=== PATIENT | male | born 1950 | race African-American/Black ===

== ENCOUNTER 2017-10-24 09:14 | Emergency (ER) | payer MEDICARE, SELFPAY | END 2017-10-24 11:07 | disposition home or self-care (01) | LOC: NAV ERS 09:14 | DX: J06.9 Acute upper respiratory infection, unspecified (principal) | CPT/HCPCS: 99283 ==

== ENCOUNTER 2018-09-19 08:42 | Emergency (ER) | payer MEDICARE, SELFPAY ==
[2018-09-19] MEDS ORDERED: Sodium Chloride 0.9% 1,000 ML BAG ONE (09:00)
[2018-09-19] MEDS ORDERED: Diltiazem 125 MG/25 ML ONE (09:32)
[2018-09-19 09:54] LABS: #Basophils 0.1 thou/uL (0.0-0.2); #Lymphocytes 1.2 thou/uL (1.20-3.40); #Monocytes 0.5 thou/uL (0.11-0.59); #Neutrophils 3.6 thou/uL (1.40-6.50); %Basophils 1.5 % (0.0-1.0); %Eosinophils 0.2 % (0.0-10.0); %Lymphocytes 22.6 % (21.0-51.0); %Monocytes 8.4 % (0.0-10.0); %Neutrophils 67.3 % (42.0-75.0); Hemoglobin 15.5 g/dL (14.0-18.0); Mean Corpuscular HGB CONC 32.2 g/dL (32.0-36.0); Mean Corpuscular Hemoglobin 30.4 pg (27.0-31.0); Mean Corpuscular Volume 94.3 fL (78.0-98.0); Mean Platelet Volume 8.3 fL (7.4-10.4); PTT 27.2 SEC (22.9-36.1); Platelet Count 225 thou/uL (130-400); Prothrombin Time 13.6 SEC (12.0-14.7); RBC Distribution Width 12.2 % (11.5-14.5); Red Blood Cell (RBC) Count 5.11 mill/uL (4.70-6.10); White Blood Cell (WBC) Count 5.4 thou/uL (4.8-10.8)
[2018-09-19 10:01] LABS: Acetaminophen Less than 6.0 mcg/mL (10.0-30.0); Alcohol Less than 10 mg/dL (Less than 10); Salicylate Less than 8.0 mg/dL (15.0-30.0)
[2018-09-19 10:05] LABS: ALT (SGPT) 32 U/L (8-55); AST (SGOT) 44 U/L (5-34); Albumin 4.2 g/dL (3.4-4.8); Alkaline Phosphatase 81 U/L (40-150); Anion Gap 18 mmol/L (10-20); BUN (Urea Nitrogen) 14 mg/dL (8.4-25.7); Bilirubin, Total 0.5 mg/dL (0.2-1.2); Calc. Creatinine Clearance 0 mL/min (70-130); Calcium 9.5 mg/dL (7.8-10.44); Carbon Dioxide 20 mmol/L (23-31); Chloride 100 mmol/L (98-107); Estimated GFR-MDRD 80; Globulin 3.2 g/dL (2.4-3.5); Glucose 99 mg/dL (80-115); Potassium 4.2 mmol/L (3.5-5.1); Protein, Total 7.4 g/dL (5.8-8.1); Sodium 134 mmol/L (136-145)
[2018-09-19] MEDS ORDERED: Lorazepam 1 MG TAB ONE (10:09)
[2018-09-19 10:21] LABS: CKMB 5.8 ng/mL (0-6.6)
--- NOTE | 2018-09-19 10:51 | RAD ---
CHEST 1 VIEW: Date: 09/19/18 HISTORY: Chest pain. Dyspnea. COMPARISON: None. FINDINGS: Lungs are clear. No pneumothorax or effusion. Heart size mildly enlarged. No acute osseous abnormality. IMPRESSION: Mild cardiomegaly. POS: [facility]
[2018-09-19 11:59] LABS: Amphetamine Not Detected (NotDetected); Barbiturates Screen Not Detected (NotDetected); Benzodiazepine Screen Not Detected (NotDetected); Cocaine Metabolite Screen Not Detected (NotDetected); Methadone Not Detected (NotDetected); Methamphetamine Not Detected (NotDetected); Opiate Screen Not Detected (NotDetected); Oxycodone Screen Not Detected (NotDetected); Phencyclidine (PCP) Not Detected (NotDetected); THC/Cannabinoid Screen Not Detected (NotDetected); Tricyclic Screen Not Detected (NotDetected)
[2018-09-19 12:00] LABS: Medtox Control Line Valid? VALID (VALID)
== END 2018-09-19 11:20 | disposition short-term general hospital (02) ==
LOC: NAV ERS 08:42
DX: I48.91 Unspecified atrial fibrillation (principal); F10.10 Alcohol abuse, uncomplicated; I24.8 Other forms of acute ischemic heart disease; R79.89 Other specified abnormal findings of blood chemistry
CPT/HCPCS: 36415; 71045; 80053; 80306; 80307; 82553; 84443; 84484; 85025; 85610; 85730; 93005; 94760; 96374; J7050; J7070

== ENCOUNTER 2019-05-13 16:00 | Emergency (ER) | payer SELFPAY, MEDICARE | END 2019-05-13 17:00 | disposition home or self-care (01) | LOC: NAV ERS 16:00 | DX: S16.1XXA Strain of muscle, fascia and tendon at neck level, initial encounter (principal); I49.9 Cardiac arrhythmia, unspecified; I48.91 Unspecified atrial fibrillation; E78.5 Hyperlipidemia, unspecified; E78.00 Pure hypercholesterolemia, unspecified; I10 Essential (primary) hypertension; Z79.82 Long term (current) use of aspirin; Z79.899 Other long term (current) drug therapy; X50.9XXA Other and unspecified overexertion or strenuous movements or postures, initial encounter | CPT/HCPCS: 99283 ==

== ENCOUNTER 2019-05-28 14:40 | Emergency (ER) | payer MEDICARE ==
[2019-05-28 15:05] LABS: #Basophils 0.1 thou/uL (0.0-0.2); #Monocytes 0.5 thou/uL (0.11-0.59); #Neutrophils 4.1 thou/uL (1.40-6.50); %Basophils 0.9 % (0.0-1.0); %Eosinophils 0.3 % (0.0-10.0); %Lymphocytes 29.9 % (21.0-51.0); %Neutrophils 61.8 % (42.0-75.0); Hemoglobin 13.3 g/dL (14.0-18.0); Mean Corpuscular HGB CONC 31.8 g/dL (32.0-36.0); Mean Corpuscular Hemoglobin 28.2 pg (27.0-31.0); Mean Corpuscular Volume 88.9 fL (78.0-98.0); Mean Platelet Volume 8.2 fL (7.4-10.4); Platelet Count 214 thou/uL (130-400); Red Blood Cell (RBC) Count 4.72 mill/uL (4.70-6.10); White Blood Cell (WBC) Count 6.6 thou/uL (4.8-10.8)
[2019-05-28] MEDS ORDERED: Aspirin Chewable 81 MG TAB ONE (15:12)
--- NOTE | 2019-05-28 15:15 | RAD ---
PORTABLE CHEST ONE VIEW: 05/28/19 at 2:45 p.m. HISTORY: Dyspnea. FINDINGS: Comparison made with exam of 09/19/18. The heart size is normal. The aorta is tortuous. The lungs are expanded without focal areas of consol idation, pneumothoraces, sindy pulmonary edema or pleural effusions. IMPRESSION: No acute process. POS: OFF
[2019-05-28] MEDS ORDERED: Diltiazem 125 MG/25 ML ONE ×2 (15:20→15:49)
[2019-05-28 15:24] LABS: Lactic Acid 1.4 mmol/L (0.5-2.2)
[2019-05-28 15:25] LABS: INR-International Normal Ratio 1.1; PTT 28.9 SEC (22.9-36.1); Prothrombin Time 13.9 SEC (12.0-14.7)
[2019-05-28 15:29] LABS: ALT (SGPT) 22 U/L (8-55); AST (SGOT) 31 U/L (5-34); Albumin 4.3 g/dL (3.4-4.8); Alkaline Phosphatase 98 U/L (40-150); Anion Gap 18 mmol/L (10-20); BUN (Urea Nitrogen) 11 mg/dL (8.4-25.7); Bilirubin, Total 0.9 mg/dL (0.2-1.2); CK (CPK) 370 U/L (30-200); Calc. Creatinine Clearance 0 mL/min (70-130); Carbon Dioxide 28 mmol/L (23-31); Chloride 99 mmol/L (98-107); Estimated GFR-MDRD 51; Globulin 3.4 g/dL (2.4-3.5); Glucose 118 mg/dL (80-115); Magnesium 2.1 mg/dL (1.6-2.6); Protein, Total 7.7 g/dL (5.8-8.1); Sodium 142 mmol/L (136-145)
[2019-05-28 15:36] LABS: Potassium 2.9 mmol/L (3.5-5.1)
[2019-05-28] MEDS ORDERED: Potassium Chloride 20 MEQ TAB ONE (15:41)
[2019-05-28] MEDS ORDERED: Potassium Chloride 20 MEQ/100 ML PREMIX BAG ONE (15:41)
[2019-05-28 15:42] LABS: Bilirubin Negative (Negative); Blood, Urine Trace (Negative); Clarity Clear (Clear); Glucose, Urine (Dipstick) Negative (Negative); Leukocyte Negative (Negative); Nitrite Negative (Negative); Protein, Urine (Dipstick) Trace mg/dL (Neg-Trace); Urobilinogen 0.2 mg/dL (Less than 2)
[2019-05-28 15:46] LABS: CKMB 5.7 ng/mL (0-6.6)
[2019-05-28 15:53] LABS: Amphetamine Not Detected (NotDetected); Barbiturates Screen Not Detected (NotDetected); Benzodiazepine Screen Not Detected (NotDetected); Cocaine Metabolite Screen Not Detected (NotDetected); Medtox Control Line Valid? VALID (VALID); Methadone Not Detected (NotDetected); Methamphetamine Not Detected (NotDetected); Opiate Screen Not Detected (NotDetected); Oxycodone Screen Not Detected (NotDetected); Phencyclidine (PCP) Not Detected (NotDetected); THC/Cannabinoid Screen Not Detected (NotDetected); Tricyclic Screen Not Detected (NotDetected)
[2019-05-28 16:00] LABS: Bacteria/HPF None Seen HPF (None Seen); RBC/HPF 0-3 HPF (0-3); Squamous Epithelial None Seen HPF (0-3); WBC/HPF None Seen HPF (0-3)
[2019-05-28] MEDS ORDERED: Enoxaparin Sodium 100 MG/ML SYRINGE ONE (16:08)
== END 2019-05-28 16:45 | disposition short-term general hospital (02) ==
LOC: NAV ERS 14:40
DX: I48.91 Unspecified atrial fibrillation (principal); N17.9 Acute kidney failure, unspecified; E86.0 Dehydration; E87.6 Hypokalemia; R77.8 Other specified abnormalities of plasma proteins; E78.5 Hyperlipidemia, unspecified; I10 Essential (primary) hypertension; Z79.82 Long term (current) use of aspirin; Z79.899 Other long term (current) drug therapy
CPT/HCPCS: 71045; 80053; 80306; 81003; 81015; 82550; 82553; 83605; 83735; 84443; 84484; 85025; 85610; 85730; 93005; 94760; 96361; 96365; 96372; 96375; J1650; J3480

== ENCOUNTER 2021-01-23 14:01 | Emergency (ER) | payer MEDICARE | END 2021-01-23 14:45 | disposition home or self-care (01) | LOC: NAV ERS 14:01 | DX: M70.21 Olecranon bursitis, right elbow (principal); E78.5 Hyperlipidemia, unspecified; I10 Essential (primary) hypertension; Z79.82 Long term (current) use of aspirin ==

== ENCOUNTER 2021-12-11 18:05 | Emergency (ER) | payer MEDICARE | END 2021-12-11 19:40 | disposition home or self-care (01) | LOC: NAV ERS 18:05 | DX: S83.91XA Sprain of unspecified site of right knee, initial encounter (principal); I10 Essential (primary) hypertension; I48.91 Unspecified atrial fibrillation; E78.5 Hyperlipidemia, unspecified; E78.00 Pure hypercholesterolemia, unspecified; W17.89XA Other fall from one level to another, initial encounter ==

== ENCOUNTER 2021-12-16 11:40 | Emergency (ER) | payer MEDICARE ==
[2021-12-16] MEDS ORDERED: Aspirin Chewable 81 MG TAB ONE (12:04)
[2021-12-16] MEDS ORDERED: Enoxaparin Sodium 100 MG/ML SYRINGE ONE (12:04)
[2021-12-16 12:18] LABS: PTT 28.3 sec (22.9-36.1)
[2021-12-16 12:28] LABS: ALT (SGPT) 23 U/L (8-55); AST (SGOT) 32 U/L (5-34); Albumin 4.4 g/dL (3.4-4.8); Alkaline Phosphatase 94 U/L (40-110); Anion Gap 16 mmol/L (10-20); BUN (Urea Nitrogen) 17 mg/dL (8.4-25.7); Bilirubin, Total 0.5 mg/dL (0.2-1.2); Calc. Creatinine Clearance 0 mL/min (70-130); Calcium 9.7 mg/dL (7.8-10.44); Carbon Dioxide 26 mmol/L (23-31); Chloride 101 mmol/L (98-107); Globulin 3.7 g/dL (2.4-3.5); Glucose 104 mg/dL (80-115); Potassium 4.2 mmol/L (3.5-5.1); Protein, Total 8.1 g/dL (5.8-8.1); Sodium 139 mmol/L (136-145)
[2021-12-16 12:48] LABS: #Basophils 0.1 thou/uL (0.0-0.2); #Lymphocytes 1.9 thou/uL (1.20-3.40); #Monocytes 0.5 thou/uL (0.11-0.59); #Neutrophils 4.2 thou/uL (1.40-6.50); %Basophils 1.8 % (0.0-1.0); %Eosinophils 0.3 % (0.0-10.0); %Lymphocytes 27.7 % (21.0-51.0); %Monocytes 7.3 % (0.0-10.0); %Neutrophils 62.9 % (42.0-75.0); Hemoglobin 15.5 g/dL (14.0-18.0); Mean Corpuscular HGB CONC 31.6 g/dL (32.0-36.0); Mean Platelet Volume 7.6 fL (7.4-10.4); Platelet Count 243 thou/uL (130-400); RBC Distribution Width 12.8 % (11.5-14.5); Red Blood Cell (RBC) Count 5.01 mill/uL (4.70-6.10); White Blood Cell (WBC) Count 6.7 thou/uL (4.8-10.8)
[2021-12-16 12:58] LABS: CKMB 5.1 ng/mL (0-6.6)
[2021-12-16 13:50] LABS: SARS-CoV-2 NAA Rapid Test Not Detected (NotDetected)
[2021-12-16] MEDS ORDERED: Metoprolol Tartrate 25 MG TAB ONE (13:56)
[2021-12-16 14:06] LABS: Magnesium 1.4 mg/dL (1.6-2.6)
== END 2021-12-16 14:43 | disposition short-term general hospital (02) ==
LOC: NAV ERS 11:40
DX: I48.91 Unspecified atrial fibrillation (principal); I12.9 Hypertensive chronic kidney disease with stage 1 through stage 4 chronic kidney disease, or unspecified chronic kidney disease; N18.30 Chronic kidney disease, stage 3 unspecified; R79.89 Other specified abnormal findings of blood chemistry; E78.5 Hyperlipidemia, unspecified; Z20.822 Contact with and (suspected) exposure to COVID-19
CPT/HCPCS: 71045; 80053; 82553; 83735; 83880; 84443; 84484; 85025; 85610; 85730; 93005; 94760; 96372; 96374; J1650; U0002

== ENCOUNTER 2023-10-31 15:01 | Emergency (ER) | payer SELFPAY ==
[2023-10-31] MEDS ORDERED: Sodium Chloride 0.9% 100 ML ONE (15:49)
[2023-10-31] MEDS ORDERED: dilTIAZem 25 MG/5 ML VIAL ONE (15:49)
[2023-10-31] MEDS ORDERED: dilTIAZem 125 MG/25 ML SDV ONE (15:49)
[2023-10-31 16:05] LABS: ALT (SGPT) 17 U/L (8-55); AST (SGOT) 22 U/L (5-34); Alkaline Phosphatase 97 U/L (40-110); Anion Gap 20 mmol/L (10-20); BUN (Urea Nitrogen) 13 mg/dL (8.4-25.7); Bilirubin, Total 0.6 mg/dL (0.2-1.2); Calc. Creatinine Clearance 0 mL/min (70-130); Calcium 8.7 mg/dL (7.8-10.44); Carbon Dioxide 17 mmol/L (23-31); Chloride 106 mmol/L (98-107); Estimated GFR 62; Globulin 3.4 g/dL (2.4-3.5); Glucose 118 mg/dL (83-110); Potassium 3.9 mmol/L (3.5-5.1); Protein, Total 7.4 g/dL (5.8-8.1); Sodium 139 mmol/L (136-145); Troponin I 0.032 ng/mL (< 0.028)
[2023-10-31 16:09] LABS: #Basophils 0.1 thou/uL (0.0-0.2); #Lymphocytes 2.6 thou/uL (1.20-3.40); #Monocytes 0.4 thou/uL (0.11-0.59); #Neutrophils 4.1 thou/uL (1.40-6.50); %Basophils 1.1 % (0.0-1.0); %Eosinophils 0.6 % (0.0-10.0); %Lymphocytes 35.7 % (21.0-51.0); %Monocytes 5.2 % (0.0-10.0); %Neutrophils 57.4 % (42.0-75.0); Hematocrit 45.2 % (42.0-52.0); Hemoglobin 14.8 g/dL (14.0-18.0); Mean Corpuscular HGB CONC 32.8 g/dL (32.0-36.0); Mean Corpuscular Hemoglobin 31.1 pg (27.0-31.0); Mean Corpuscular Volume 94.9 fl (78.0-98.0); Mean Platelet Volume 8.1 fL (7.4-10.4); Platelet Count 206 10x3/uL (130-400); RBC Distribution Width 12.9 % (11.5-14.5); Red Blood Cell (RBC) Count 4.77 mill/uL (4.70-6.10); White Blood Cell (WBC) Count 7.1 10x3/uL (4.8-10.8)
[2023-10-31] MEDS ORDERED: Aspirin Chewable 81 MG TAB ONE (16:30)
== END 2023-10-31 17:00 | disposition short-term general hospital (02) ==
LOC: NAV ERS 15:01
DX: I48.92 Unspecified atrial flutter (principal); R79.89 Other specified abnormal findings of blood chemistry; I10 Essential (primary) hypertension; Z87.891 Personal history of nicotine dependence
CPT/HCPCS: 36415; 71045; 80053; 84484; 85025; 93005; 96365; 96374

== ENCOUNTER 2024-10-26 23:09 | Emergency (ER) | payer MEDICARE ==
[2024-10-26] MEDS ORDERED: dilTIAZem 125 MG/25 ML SDV ONE (23:37)
[2024-10-26] MEDS ORDERED: Sodium Chloride 0.9% 100 ML ONE (23:38)
[2024-10-26 23:39] LABS: #Basophils 0.1 thou/uL (0.0-0.2); #Monocytes 0.5 thou/uL (0.11-0.59); #Neutrophils 1.9 thou/uL (1.40-6.50); %Basophils 1.8 % (0.0-1.0); %Eosinophils 0.8 % (0.0-10.0); %Lymphocytes 53.8 % (21.0-51.0); %Monocytes 9.4 % (0.0-10.0); %Neutrophils 34.1 % (42.0-75.0); Hematocrit 43.3 % (42.0-52.0); Hemoglobin 13.5 g/dL (14.0-18.0); Mean Corpuscular HGB CONC 31.2 g/dL (32.0-36.0); Mean Corpuscular Hemoglobin 29.9 pg (27.0-31.0); Mean Corpuscular Volume 95.8 fl (78.0-98.0); Mean Platelet Volume 9.1 fL (7.4-10.4); Platelet Count 144 10x3/uL (130-400); RBC Distribution Width 12.1 % (11.5-14.5); Red Blood Cell (RBC) Count 4.52 mill/uL (4.70-6.10); White Blood Cell (WBC) Count 5.6 10x3/uL (4.8-10.8)
[2024-10-26] MEDS ORDERED: dilTIAZem 25 MG/5 ML VIAL ONE (23:41)
[2024-10-26 23:55] LABS: ALT (SGPT) 19 U/L (Less than 45); AST (SGOT) 30 U/L (11-34); Albumin 4.1 g/dL (3.1-4.5); Alkaline Phosphatase 68 U/L (40-110); Anion Gap 14 mmol/L (10-20); BUN (Urea Nitrogen) 21 mg/dL (8.4-25.7); Bilirubin, Total 1.1 mg/dL (0.3-1.2); Calc. Creatinine Clearance 0 mL/min (70-130); Calcium 9.5 mg/dL (7.8-10.44); Carbon Dioxide 20 mmol/L (23-31); Chloride 108 mmol/L (98-107); Estimated GFR 38; Glucose 124 mg/dL (83-110); Potassium 3.8 mmol/L (3.5-5.1); Protein, Total 7.1 g/dL (5.8-8.1); Sodium 138 mmol/L (136-145)
[2024-10-26 23:57] LABS: Troponin I 0.092 ng/mL (< 0.028)
[2024-10-27] MEDS ORDERED: Aspirin Chewable 81 MG TAB ONE (00:06)
[2024-10-27 04:34] LABS: Troponin I 0.085 ng/mL (< 0.028)
[2024-10-27 06:01] LABS: Troponin I 0.083 ng/mL (< 0.028)
[2024-10-27] MEDS ORDERED: Metoprolol Tartrate 25 MG TAB ONE (08:19)
[2024-10-27 09:23] LABS: Anion Gap 13 mmol/L (10-20); BUN (Urea Nitrogen) 18 mg/dL (8.4-25.7); Calc. Creatinine Clearance 0 mL/min (70-130); Calcium 9.5 mg/dL (7.8-10.44); Carbon Dioxide 20 mmol/L (23-31); Chloride 110 mmol/L (98-107); Estimated GFR 51; Glucose 121 mg/dL (83-110); Sodium 139 mmol/L (136-145)
== END 2024-10-27 13:13 | disposition short-term general hospital (02) ==
LOC: NAV ERS 23:09
DX: I48.91 Unspecified atrial fibrillation (principal); R79.89 Other specified abnormal findings of blood chemistry; J81.1 Chronic pulmonary edema; I10 Essential (primary) hypertension; Z79.82 Long term (current) use of aspirin
CPT/HCPCS: 71045; 80048; 80053; 83735; 83880; 84484; 85025; 93005; 94760; 96374

== ENCOUNTER 2025-01-10 11:05 | Outpatient (CLI) | payer OTHER ==
[2025-01-10 11:33] LABS: INR-International Normal Ratio 1.7; Prothrombin Time 20.3 sec (12.0-14.7)
== END 2025-01-10 11:06 | disposition home or self-care (01) ==
LOC: NAV LAB 11:05
PROVIDERS: ATTEND Internal Medicine
DX: I50.22 Chronic systolic (congestive) heart failure (principal)
CPT/HCPCS: 36415; 85610

== ENCOUNTER 2025-05-03 17:14 | Emergency (ER) | payer MEDICARE, SELFPAY ==
[2025-05-03 17:58] LABS: Hematocrit 39.4 % (42.0-52.0); Hemoglobin 13.5 g/dL (14.0-18.0); Mean Corpuscular Hemoglobin 31.5 pg (27.0-31.0); Mean Corpuscular Volume 92.0 fl (78.0-98.0); Platelet Count 164 10x3/uL (130-400); Red Blood Cell (RBC) Count 4.28 mill/uL (4.70-6.10); White Blood Cell (WBC) Count 5.9 10x3/uL (4.8-10.8)
[2025-05-03 18:04] LABS: ALT (SGPT) 17 U/L (Less than 45); AST (SGOT) 25 U/L (11-34); Albumin 4.2 g/dL (3.1-4.5); Alkaline Phosphatase 49 U/L (40-110); Anion Gap 22 mmol/L (10-20); BUN (Urea Nitrogen) 117 mg/dL (8.4-25.7); Bilirubin, Total 0.7 mg/dL (0.3-1.2); Calc. Creatinine Clearance 0 mL/min (70-130); Calcium 9.6 mg/dL (7.8-10.44); Carbon Dioxide 21 mmol/L (23-31); Chloride 97 mmol/L (98-107); Globulin 3.8 g/dL (2.4-3.5); Glucose 97 mg/dL (83-110); Potassium 4.8 mmol/L (3.5-5.1); Sodium 135 mmol/L (136-145)
[2025-05-03 18:06] LABS: MDiff Complete? YES
[2025-05-03 18:07] LABS: INR-International Normal Ratio 1.3; Prothrombin Time 16.2 sec (12.0-14.7)
[2025-05-03 18:24] LABS: Platelet Adequacy Comment Appears Adequate; Toxic Granulation SLIGHT
[2025-05-03 18:46] LABS: Troponin I 0.041 ng/mL (< 0.028)
[2025-05-03 22:14] LABS: Troponin I 0.034 ng/mL (< 0.028)
== END 2025-05-04 00:07 | disposition short-term general hospital (02) ==
LOC: NAV ERS 17:14
DX: E86.0 Dehydration (principal); I95.9 Hypotension, unspecified; N28.9 Disorder of kidney and ureter, unspecified; R53.83 Other fatigue; R79.89 Other specified abnormal findings of blood chemistry; I25.10 Atherosclerotic heart disease of native coronary artery without angina pectoris; I10 Essential (primary) hypertension; E78.00 Pure hypercholesterolemia, unspecified; I48.91 Unspecified atrial fibrillation; Z79.899 Other long term (current) drug therapy
CPT/HCPCS: 71045; 80053; 84484 ×2; 85025; 85610; 93005; 94760; J7030 ×2; J7050; 36415; 96360; 96361

== ENCOUNTER 2025-05-18 20:56 | Emergency (ER) | payer MEDICARE, SELFPAY ==
[2025-05-18 21:24] LABS: #Basophils 0.2 thou/uL (0.0-0.2); #Eosinophils 0.0 thou/uL (0.0-0.7); #Lymphocytes 0.9 thou/uL (1.20-3.40); #Monocytes 1.3 thou/uL (0.11-0.59); #Neutrophils 9.7 thou/uL (1.40-6.50); %Basophils 1.3 % (0.0-1.0); %Eosinophils 0.3 % (0.0-10.0); %Lymphocytes 7.7 % (21.0-51.0); %Monocytes 11.1 % (0.0-10.0); %Neutrophils 79.7 % (42.0-75.0); Hematocrit 34.2 % (42.0-52.0); Hemoglobin 11.9 g/dL (14.0-18.0); Mean Corpuscular Hemoglobin 31.7 pg (27.0-31.0); Mean Corpuscular Volume 91.4 fl (78.0-98.0); Platelet Count 177 10x3/uL (130-400); Red Blood Cell (RBC) Count 3.74 mill/uL (4.70-6.10); White Blood Cell (WBC) Count 12.1 10x3/uL (4.8-10.8)
[2025-05-18 21:32] LABS: INR-International Normal Ratio 2.6; Prothrombin Time 28.4 sec (12.0-14.7)
[2025-05-18 21:33] LABS: PTT 66.2 sec (22.9-36.1)
[2025-05-18 21:37] LABS: Troponin I 0.028 ng/mL (< 0.028)
[2025-05-18 21:40] LABS: ALT (SGPT) 24 U/L (Less than 45); AST (SGOT) 30 U/L (11-34); Albumin 3.8 g/dL (3.1-4.5); Alkaline Phosphatase 57 U/L (40-110); Anion Gap 19 mmol/L (10-20); BUN (Urea Nitrogen) 51 mg/dL (8.4-25.7); Bilirubin, Total 0.9 mg/dL (0.3-1.2); Calc. Creatinine Clearance 0 mL/min (70-130); Calcium 8.9 mg/dL (7.8-10.44); Carbon Dioxide 19 mmol/L (23-31); Chloride 100 mmol/L (98-107); Globulin 3.9 g/dL (2.4-3.5); Glucose 158 mg/dL (83-110); Lipase 22 U/L (8-78); Magnesium 2.2 mg/dL (1.6-2.6); Potassium 3.7 mmol/L (3.5-5.1); Sodium 134 mmol/L (136-145)
[2025-05-18 23:10] LABS: Glucose, Urine (Dipstick) Negative (Negative); Leukocyte Small (Negative); Protein, Urine (Dipstick) 100 mg/dL (Neg-Trace); Specific Gravity, Urine 1.015 (1.005-1.030)
[2025-05-18 23:15] LABS: CAUTI Indications for Culture Dysuria,urgency,freq; RBC/HPF Greater than 50 HPF (0-3); WBC/HPF 21-50 HPF (0-3)
[2025-05-18 23:16] LABS: Bacteria/HPF 2+ HPF (None Seen)
[2025-05-18 23:18] LABS: Urine Culture Reflex Yes Yes
== END 2025-05-18 23:18 | disposition short-term general hospital (02) ==
LOC: NAV ERS 20:56
DX: N17.9 Acute kidney failure, unspecified (principal); I95.9 Hypotension, unspecified; I48.91 Unspecified atrial fibrillation; I10 Essential (primary) hypertension; Z79.02 Long term (current) use of antithrombotics/antiplatelets; Z79.899 Other long term (current) drug therapy
CPT/HCPCS: 51798; 70450; 71045; 80053; 81001; 83605; 83690; 83735; 83880; 84484; 85025; 85610; 85730; 87040; 87077; 87086; 87149; 87186; 93005; 94760; J7030

== ENCOUNTER 2025-06-06 10:34 | Outpatient (CLI) | payer OTHER ==
[2025-06-06 11:19] LABS: INR-International Normal Ratio 1.2; Prothrombin Time 15.4 sec (12.0-14.7)
== END 2025-06-06 10:35 | disposition home or self-care (01) ==
LOC: NAV LAB 10:34
PROVIDERS: ATTEND Family Medicine
DX: I48.91 Unspecified atrial fibrillation (principal)
CPT/HCPCS: 36415; 85610

== ENCOUNTER 2025-06-11 20:27 | Emergency (ER) | payer MEDICARE ==
[2025-06-11] MEDS ORDERED: Bacitracin 1 PK ONE (20:48)
[2025-06-11] MEDS ORDERED: Lidocaine 1% (PF) 30 ML VIAL ONE (20:48)
[2025-06-11] MEDS ORDERED: Boostrix 0.5 ML (Tdap) VIAL (>/=7 yrs of age) ONE (21:44)
== END 2025-06-11 22:20 | disposition home or self-care (01) ==
LOC: NAV ERS 20:27
DX: S41.112A Laceration without foreign body of left upper arm, initial encounter (principal); I10 Essential (primary) hypertension; I48.91 Unspecified atrial fibrillation; W01.10XA Fall on same level from slipping, tripping and stumbling with subsequent striking against unspecified object, initial encounter; Z79.01 Long term (current) use of anticoagulants; Z79.899 Other long term (current) drug therapy
CPT/HCPCS: 12004; 90471; 90715